=== PATIENT | female | born 2000 | race African-American/Black ===

== ENCOUNTER 2021-10-19 07:25 | Emergency (ER) | payer SELFPAY ==
[~2021-10-19] VITALS: Ht 162.6 cm; Wt 63.5 kg
[2021-10-19 08:11] LABS: Basophils # (auto) 0.1 10 ^3/uL (0-0.2); Basophils % (auto) 1.1 % (0.0-2.0); Eosinophils # (auto) 0.3 10 ^3/uL (0-0.8); Eosinophils % (auto) 4.2 % (0.0-7.0); Hematocrit 37.1 % (36.0-46.0); Hemoglobin 12.2 g/dL (12.2-16.2); Lymphocytes # (auto) 1.8 10 ^3/uL (0.4-5.4); Mean Corpuscular Hemoglobin 27.3 pg (28.0-32.0); Mean Corpuscular Hgb Conc. 32.9 g/dL (32.0-36.0); Monocytes # (auto) 0.6 10 ^3/uL (0-1.3); Monocytes % (auto) 7.5 % (0.0-12.0); Neutrophils # (auto) 4.6 10 ^3/uL (1.6-8.6); Neutrophils % (auto) 62.2 % (37.0-80.0); Nucleated Red Blood Cells % 0.1 %; Red Blood Cells 4.47 10^6/uL (4.0-5.20); Red Cell Distribution Width 15.5 % (11.8-14.3); White Blood Cell 7.4 10^3/uL (4.4-10.8)
[2021-10-19 08:16] LABS: Urine Bacteria NONE SEEN /hpf (None Seen); Urine Blood 3+ /uL (Negative); Urine Budding Yeast MANY /hpf (None Seen); Urine WBC 2658 /hpf (0 - 5); Urine WBC Clumps PRESENT /hpf (None Seen)
[2021-10-19 09:13] LABS: BUN/Creatinine Ratio 12.5; Bilirubin, Total 0.5 mg/dL (0.2-1.0); Potassium 4.1 mmol/L (3.5-5.1)
[2021-10-19] MEDS ORDERED: CEPHALEXIN 250 MG CAP PO ONE (10:45)
[2021-10-19 11:43] VITALS: BP 130/82
== END 2021-10-19 11:47 | disposition home or self-care (01) ==
LOC: ER 07:25
DX: N39.0 Urinary tract infection, site not specified (principal)
CPT/HCPCS: 36415; 76830; 76856; 80053; 81001; 84702; 85025

== ENCOUNTER 2022-01-05 13:44 | Emergency (ER) | payer SELFPAY ==
[~2022-01-05] VITALS: Ht 160 cm; Wt 63.5 kg
[2022-01-05 14:17] VITALS: BP 137/78
[2022-01-05 14:55] LABS: Basophils # (auto) 0 10 ^3/uL (0-0.2); Eosinophils # (auto) 0.2 10 ^3/uL (0-0.8); Hemoglobin 11.6 g/dL (12.2-16.2); Lymphocytes # (auto) 1.1 10 ^3/uL (0.4-5.4); Monocytes # (auto) 0.4 10 ^3/uL (0-1.3); Neutrophils # (auto) 3.7 10 ^3/uL (1.6-8.6); Nucleated Red Blood Cells % 0.1 %; Red Cell Distribution Width 15.9 % (11.8-14.3); White Blood Cell 5.5 10^3/uL (4.4-10.8)
[2022-01-05 14:58] LABS: Basophils % (auto) 0.7 % (0.0-2.0); Eosinophils % (auto) 4.3 % (0.0-7.0); Hematocrit 36.6 % (36.0-46.0); Lymphocytes % (auto) 19.9 % (10.0-50.0); Mean Corpuscular Hemoglobin 25.5 pg (28.0-32.0); Mean Corpuscular Hgb Conc. 31.6 g/dL (32.0-36.0); Mean Corpuscular Volume 80.9 fL (80.0-100.0); Monocytes % (auto) 7.1 % (0.0-12.0); Red Blood Cells 4.53 10^6/uL (4.0-5.20)
[2022-01-05 15:14] LABS: Urine Bacteria MANY /hpf (None Seen); Urine Blood 3+ /uL (Negative); Urine Mucus FEW (None Seen); Urine Specific Gravity 1.028 (1.001-1.035); Urine WBC 11 /hpf (0 - 5)
[2022-01-05] MEDS ORDERED: NAPR500T31 PO (15:36)
[2022-01-05] MEDS ORDERED: SULF400T11 PO (15:36)
== END 2022-01-05 15:50 | disposition home or self-care (01) ==
LOC: ER 13:44
DX: N92.6 Irregular menstruation, unspecified (principal); N30.00 Acute cystitis without hematuria
CPT/HCPCS: 36415; 81001; 84702; 85025

== ENCOUNTER 2022-02-25 17:47 | Emergency (ER) | payer SELFPAY ==
[~2022-02-25] VITALS: Ht 160 cm; Wt 64.0 kg
[~2022-02-25 17:47] MED LIST: NAPR500T31 PO; SULF400T11 PO
[2022-02-25 21:05] VITALS: BP 105/78
== END 2022-02-25 20:43 | disposition home or self-care (01) ==
LOC: ER 17:47
DX: R11.0 Nausea (principal); Z32.01 Encounter for pregnancy test, result positive
CPT/HCPCS: 81025